=== PATIENT | male | born 1990 | race Caucasian/White ===

== ENCOUNTER 2022-06-02 13:53 | Emergency (ER) | payer SELFPAY ==
[~2022-06-02] VITALS: Ht 182.9 cm; Wt 91.0 kg
[2022-06-02] MEDS ORDERED: SODIUM CHLORIDE 0.9% 1,000 ML IV ONE (14:30)
[2022-06-02 17:00] VITALS: BP 136/84
[2022-06-02] MEDS ORDERED: DIPHENHYDRAMINE 50MG/ML VIAL IM ONE (17:45)
[2022-06-02] MEDS ORDERED: HALOPERIDOL LACTATE 5MG/ML VIAL IM ONE (17:45)
[2022-06-02] MEDS ORDERED: LORAZEPAM 2MG/ML CPJ IM ONE (17:45)
== END 2022-06-02 18:01 | disposition home or self-care (01) ==
LOC: ER 14:17
DX: F15.10 Other stimulant abuse, uncomplicated (principal); F14.10 Cocaine abuse, uncomplicated
CPT/HCPCS: 96360; 96372; 99284; J1200; J1630; J2060; J7030